=== PATIENT | female | born 1975 | race Caucasian/White ===

== ENCOUNTER → 2018-07-18 14:46 | Outpatient (CLI) | payer OTHER, SELFPAY ==
--- NOTE | 2018-07-18 14:49 | DI.RAD.S_ITS ---
PROCEDURE: XR LUMBAR SPINE MIN 4V INDICATIONS: lumbar pain TECHNIQUE: 5 views of the lumbar spine were acquired. COMPARISON: [facility], CT, CT ABD PELVIS W CON, 04/26/2016, 1:17. RG, XR L-SPINE 2-3V, 12/09/2003, 16:27. FINDINGS: Bones: 5 nonrib-bearing vertebrae are present. There is mildly dextroscoliotic bony alignment. No vertebral body compression fractures. No suspicious bony lesions. Soft tissues: Overlying bowel gas pattern is normal. No suspicious soft tissue calcifications. Oblique images: No pars defects. IMPRESSION: Mildly dextroscoliotic alignment along the lumbosacral spine centered at L2-L3, no compression fracture found. Degenerative disc disease is only mild at the L2-3 level of the lumbosacral spine and elsewhere the degenerative changes are minimal. Dictated by: Skyler Blanca M.D. on 07/18/2018 at 15:27 Approved by: Skyler Blanca M.D. on 07/18/2018 at 15:28
== END ==
PROVIDERS: Visit Provider Physical Medicine & Rehabilitation
DX: M54.5 Low back pain (principal); M51.36 Other intervertebral disc degeneration, lumbar region
CPT/HCPCS: 72110

== ENCOUNTER → 2018-09-20 13:11 | Outpatient (CLI) | payer OTHER, SELFPAY ==
--- NOTE | 2018-09-20 13:13 | DI.MRI.S_ITS ---
PROCEDURE: MR LUMBAR SPINE WO CON INDICATIONS: Low back and left hip pain. Left leg radicular symptoms TECHNIQUE: Noncontrast sagittal T1 spin echo and T2 fast echo, sagittal STIR, axial T1 and T2 fast spin echo through the lumbar spine. In cases with scoliosis, additional coronal T2 fast spin echo may be performed. COMPARISON: [facility], CR, XR LUMBAR SPINE MIN 4V, 07/18/2018, 14:54. FINDINGS: Image quality: Excellent. Alignment and Curvature: There is trace retrolisthesis of L2 on L3, L3 on L4. Bone Marrow: Marrow is of normal overall signal. Mild reactive endplate changes are present at L2-3. No acute vertebral body compression fractures. Spinal Cord: Conus medullaris terminates at the L1-L2 level. Visualized cord demonstrates normal signal and size. Paraspinous Soft Tissues: No paravertebral masses. Discs: Moderate desiccation is present at L2-3, minimal throughout the remainder of the lumbar spine. L1-L2: No disc bulge, spinal stenosis or foraminal narrowing. L2-L3: Anterior disc osteophyte complex is present. Overall, there is a mild posterior disc bulge with slight lateral extension. Minimal posterior canal narrowing secondary to epidural lipomatosis. Minimal left foraminal narrowing. L3-L4: Minimal disc both without spinal stenosis is or foraminal narrowing. Minimal facet and ligamentum flavum hypertrophy. L4-L5: Minimal disc bulge without spinal stenosis. No foraminal narrowing. Minimal to mild facet and ligamentum flavum hypertrophy. L5-S1: No disc bulge, spinal stenosis or foraminal narrowing. IMPRESSION: 1. Prominent anterior disc osteophyte complex at L2-3 with mild posterior bulge with slight lateral extension. 2. No gross spinal stenosis. 3. Minimal foraminal narrowing at L2-3. Dictated by: Barbara Carmen M.D. on 09/20/2018 at 16:13 Approved by: Barbara Carmen M.D. on 09/20/2018 at 16:18
== END ==
PROVIDERS: PCP Family Medicine; Visit Provider Physical Medicine & Rehabilitation
DX: M54.5 Low back pain (principal); M25.552 Pain in left hip; M51.16 Intervertebral disc disorders with radiculopathy, lumbar region
CPT/HCPCS: 72148

== ENCOUNTER → 2019-04-09 15:48 | Outpatient (CLI) | payer OTHER, SELFPAY ==
--- NOTE | 2019-04-09 | DI.US.S_ITS ---
PROCEDURE: US PERIPH VENOUS LOW EXTREM LT INDICATIONS: LOWER LEFT LEG PAIN, SWELLING, HISTORY OF BLOOD CLOT TECHNIQUE: Real-time imaging, as well as color and pulse Doppler interrogation, were performed of the lower extremity deep veins from the inguinal ligament to the popliteal fossa. COMPARISON: None. FINDINGS: The common femoral, femoral and popliteal veins are normally compressible, and free of intraluminal thrombus. Color and pulse Doppler demonstrate normal phasic intraluminal flow. There is normal augmentation response to distal compression maneuver. Left Achilles tendon is thickened relative to the right possibly related to chronic tendinitis. IMPRESSION: No evidence of deep vein thrombosis involving the left lower extremity. Dictated by: Edilma Bryant MD, PhD on 04/09/2019 at 16:59 Approved by: Edilma Bryant MD, PhD on 04/09/2019 at 17:00
== END ==
PROVIDERS: PCP Family Medicine; Visit Provider Internal Medicine
DX: M79.662 Pain in left lower leg (principal); R60.9 Edema, unspecified; Z86.718 Personal history of other venous thrombosis and embolism
CPT/HCPCS: 93971

== ENCOUNTER → 2019-04-12 13:06 | Outpatient (CLI) | payer OTHER, SELFPAY ==
--- NOTE | 2019-04-12 | DI.MRI.S_ITS ---
PROCEDURE: MR ANKLE LT WO CON INDICATIONS: achilles tendonitis pain TECHNIQUE: Noncontrast sagittal T1 spin echo and T2 fast spin echo with fat saturation, axial proton density fast spin echo and T2 fast spin echo with fat saturation, coronal T1 spin echo and T2 fast spin echo with fat saturation through the ankle/hindfoot. COMPARISON: None. FINDINGS: Image quality: Excellent. Bones and joints: No bone marrow contusions or fractures. No hindfoot coalitions. No osteochondral injuries of the talar dome. No pathologic joint effusions. Medial structures: The posterior tibialis, flexor digitorum longus, and flexor hallucis longus tendons are intact. Mild fluid adjacent to the posterior tibialis tendon. The posterior tibial neurovascular bundle appears normal within the tarsal tunnel, without extrinsic mass effect. The deep layer (anterior and posterior tibiotalar ligaments) and superficial layer (tibionavicular, tibiospring, and tibiocalcaneal ligaments) of the deltoid ligament appear normal. The spring ligament components (superomedial calcaneonavicular, medioplantar oblique calcaneonavicular, and inferoplantar longitudinal ligaments) are intact. Lateral structures: The anterior talofibular, calcaneofibular, and posterior talofibular ligaments appear intact. More superiorly, the anterior and posterior tibiofibular ligaments appear intact, as is the intermalleolar ligament. The tibiofibular syndesmosis is normal in width at 2 mm or less. The peroneus longus and brevis tendons demonstrate normal location and morphology. Adjacent bony peroneal tubercle and retrotrochlear prominence are normal in size. The sinus tarsi demonstrates normal fatty signal, without edema, fibrosis, or cyst formation. Visualized sinus tarsi components (cervical ligament, interosseous talocalcaneal ligament, roots of the inferior extensor retinaculum) appear normal. The calcaneonavicular and calcaneocuboid components of the bifurcate ligament appear intact. The dorsal calcaneocuboid ligament appears intact. Anterior structures: The tibialis anterior, extensor hallucis longus, and extensor digitorum longus tendons appear intact. The dorsal talonavicular ligament appears intact. Posterior and plantar structures: Achilles tendon is thickened with predominantly low signal appearance. There is mild paratenonitis. Medial and lateral bands of the plantar fascia are of normal thickness. No abductor digiti quinti muscle atrophy to suggest Almendarez neuropathy. IMPRESSION: Mild distal Achilles tendinopathy. Low-grade posterior tibialis tenosynovitis. Dictated by: Jeff Porras M.D. on 04/12/2019 at 15:08 Approved by: Jeff Porras M.D. on 04/12/2019 at 15:11
== END ==
PROVIDERS: Family Provider Family Medicine; PCP Family Medicine; Visit Provider Nurse Practitioner Family
DX: M76.62 Achilles tendinitis, left leg (principal); M65.862 Other synovitis and tenosynovitis, left lower leg
CPT/HCPCS: 73721

== ENCOUNTER → 2020-05-21 14:08 | Outpatient (CLI) | payer OTHER, SELFPAY ==
--- NOTE | 2020-05-21 | DI.RAD.S_ITS ---
PROCEDURE: XR ELBOW RT 2V INDICATIONS: RIGHT ARM PAIN S/P FALL TECHNIQUE: 3 views of the elbow were acquired. COMPARISON: None. FINDINGS: Bones: Intra-articular radial head fracture with minimal articular surface incongruity. There is approximately 1 mm of diastasis and step-off. Elbow joint effusion is present. IMPRESSION: Intra-articular radial head fracture. Associated joint effusion Dictated by: Jeff Porras M.D. on 05/21/2020 at 15:28 Approved by: Jeff Porras M.D. on 05/21/2020 at 15:29
--- NOTE | 2020-05-21 | DI.RAD.S_ITS ---
PROCEDURE: XR HUMERUS RT 2V INDICATIONS: RIGHT ARM PAIN S/P FALL TECHNIQUE: 2 views of the humerus were acquired. COMPARISON: [facility], CR, XR ELBOW RT 2V, 05/21/2020, 13:20. FINDINGS: Bones: Radial head fracture is noted. Humerus appears intact. Soft tissues: No suspicious soft tissue calcifications. IMPRESSION: Radial head fracture Dictated by: Jeff Porras M.D. on 05/21/2020 at 15:25 Approved by: Jeff Porras M.D. on 05/21/2020 at 15:26
--- NOTE | 2020-05-21 | DI.RAD.S_ITS ---
PROCEDURE: XR FOREARM RT 2V INDICATIONS: RIGHT ARM PAIN S/P FALL TECHNIQUE: 2 views of the forearm were acquired. COMPARISON: [facility], CR, XR ELBOW RT 2V, 05/21/2020, 13:20. FINDINGS: Bones: Radial head fracture better seen on the comparison studies. Soft tissues: No suspicious soft tissue calcifications or masses. IMPRESSION: Radial head fracture Dictated by: Jeff Porras M.D. on 05/21/2020 at 15:26 Approved by: Jeff Porras M.D. on 05/21/2020 at 15:28
== END ==
PROVIDERS: Family Provider Family Medicine; PCP Family Medicine; Referring Provider Family Medicine; Visit Provider Family Medicine
DX: M79.601 Pain in right arm (principal); S52.121A Displaced fracture of head of right radius, initial encounter for closed fracture; W19.XXXA Unspecified fall, initial encounter
CPT/HCPCS: 73060; 73070; 73090

== ENCOUNTER → 2023-03-17 10:12 | Outpatient (CLI) | payer OTHER, SELFPAY ==
[2023-03-17 11:12] LABS: Add Manual Diff / Slide Review NO; Basophils Absolute Auto 100 /uL (0-100); Eosinophils Absolute Auto 200 /uL (0-450); Eosinophils Percent Auto 2.8 % (2-4); Hematocrit 39.3 % (36-46); Hemoglobin 13.4 g/dL (12.0-16.0); Lymphocytes Absolute Auto 2300 /uL (1100-4500); Mean Corpuscular HGB Conc 34.2 % (30-36); Mean Corpuscular Hemoglobin 31.8 PG (26-34); Monocytes Absolute Auto 500 /uL (0-900); Monocytes Percent Auto 5.7 % (3-14); Neutrophils Absolute Auto 5100 /uL (1500-7000); Neutrophils Percent Auto 62.5 % (50-75); Platelet Count 296 X10^3/uL (150-400); Red Blood Cell Count 4.23 X10^6/uL (4.0-5.2); Red Cell Distribution Width 12.8 % (11.6-14.8); White Blood Cell Count 8.1 X10^3/uL (4.5-11.0)
[2023-03-17 11:31] LABS: Alanine Aminotransferase 12 IU/L (<35); Albumin 4.4 g/dL (3.5-5.0); Albumin Globulin Ratio 1.6 (1.0-2.8); Alkaline Phosphatase 46 U/L (38-126); Aspartate Aminotransferase 22 IU/L (14-36); Bilirubin Total 0.5 mg/dL (0.2-1.3); Blood Urea Nitrogen 12 mg/dL (7-17); Calcium 9.3 mg/dL (8.4-10.2); Carbon Dioxide 26 mmol/L (22-32); Chloride 101 mmol/L (98-107); Estimated Glomerular Filt Rate > 60 mL/min (>60); Globulin 2.8 g/dL (1.7-4.1); Glucose 112 mg/dL (70-100); HEMOLYSIS < 15 (0-50); Potassium 4.2 mmol/L (3.4-5.1); Sodium 136 mmol/L (137-145); Total Protein 7.2 g/dL (6.3-8.2)
[2023-03-17 11:32] LABS: HEMOLYSIS < 15 (0-50); Iron 130 ug/dL (37-170)
[2023-03-17 11:35] LABS: High Sensitivity CRP - Cardiac 2.3 mg/L (1.0-3.0)
[2023-03-17 11:43] LABS: Percent Iron Saturation 34 % (15-50); Total Iron Binding Capacity 388 ug/dL (265-497); Transferrin 291 mg/dL (206-381)
[2023-03-17 11:49] LABS: Follicle Stimulating Hormone 11.1 mIU/mL; Free T3, Triiodothyronine Free 3.34 pg/mL (2.77-5.27); Progesterone, Total 1.28 ng/mL; T4 Total Thyroxine 9.71 ug/dL (5.5-11.0); T7 (Free Thyroxine Index) 2.64 (1.65-3.89); Triiodothryronine T3 Uptake 27.2 % (23.5-40.5)
[2023-03-17 12:02] LABS: Thyroid Stimulating Hormone 1.55 uIU/mL (0.47-4.68)
[2023-03-17 12:04] LABS: Estradiol, Total 155.2 pg/mL
[2023-03-17 12:05] LABS: Ferritin 29 ng/mL (6-137)
[2023-03-18 08:39] LABS: Dehydroepiandrosterone Sulfate 85.9 ug/dL (41.2-243.7); Homocysteine 7.5 umol/L (0.0-14.5); Labcorp Hemoglobin (Hb) A1c 5.3 % (4.8-5.6)
== END ==
PROVIDERS: Family Provider Family Medicine; PCP Family Medicine; Referring Provider Naturopath; Visit Provider Naturopath
DX: D25.0 Submucous leiomyoma of uterus (principal); E05.00 Thyrotoxicosis with diffuse goiter without thyrotoxic crisis or storm; E27.40 Unspecified adrenocortical insufficiency; R68.82 Decreased libido; E66.3 Overweight; Z56.6 Other physical and mental strain related to work
CPT/HCPCS: 36415; 80053; 82627; 82670; 82728; 83001; 83036; 83090; 83540; 83550; 84144; 84436; 84443; 84479; 84481; 84482; 85025; 86140

== ENCOUNTER → 2023-08-22 07:46 | Outpatient (CLI) | payer OTHER, SELFPAY ==
--- NOTE | 2023-08-22 | DI.US.S_ITS ---
PROCEDURE: US PERIP VENOUS LOW EXTREM LT INDICATIONS: Left calf pain TECHNIQUE: Real-time imaging, as well as color and pulse Doppler interrogation, were performed of the lower extremity deep veins from the inguinal ligament to the popliteal fossa, with documentation of the visualized calf veins. COMPARISON: [facility], , [facility] VENOUS LOW EXTREM LT, 04/09/2019, 16:11. FINDINGS: The common femoral, femoral, popliteal, and the visualized calf veins are normally compressible, and free of intraluminal thrombus. Color and pulse Doppler demonstrate normal phasic intraluminal flow. There is normal augmentation response to distal compression maneuver. IMPRESSION: No deep venous thrombosis in the left lower extremity. Dictated by: Milan Mcmahon M.D. on 08/22/2023 at 10:48 Approved by: Milan Mcmahon M.D. on 08/22/2023 at 10:49
--- NOTE | 2023-08-22 | DI.US.S_ITS ---
PROCEDURE: US THYROID INDICATIONS: Nontoxic multinodular goiter TECHNIQUE: Real-time scanning was performed of the thyroid gland, with image documentation. COMPARISON: [facility], US, THYROID, 09/13/2017, 15:05. FINDINGS: Right: Thyroid lobe measures 4.6 x 1.4 x 0.9 cm, and is heterogeneous in echotexture. Left: Thyroid lobe measures 5.4 x 1.4 x 1.1 cm, and is heterogeneous in echotexture. Isthmus: 2 mm thick. Nodule number: 1 Not visualized on the current exam visualized Nodule number: 2 Location: Right inferior Size: 1.4 x 0.7 x 0.4 cm; previously 1.2 x 0.7 x 0.6 cm. Composition: Solid Echogenicity: Hypoechoic Shape: wider than tall. Margins: Smooth Echogenic foci: Non Total points: 4 ACR TI-RADS category: 4 Nodule number: 3 Location: Right mid Size: 0.4 x 0.3 x 0.1 cm; previously 1.2 x 0.7 x 0.6 cm. Composition: Solid Echogenicity: Isoechoic Shape: wider than tall. Margins: Irregular Echogenic foci: None Total points: 5 ACR TI-RADS category: 4 Nodule number: 4 Location: Left mid anterior Size: 0.7 x 0.7 x 0.4 cm; new. Composition: Solid Echogenicity: Hypoechoic Shape: wider than tall. Margins: Smooth Echogenic foci: None Total points: 4 ACR TI-RADS category: 4 There is a 0.8 x 0.8 x 0.3 cm hypoechoic nodule posterior to the inferior pole of the right thyroid lobe, suspicious for a parathyroid adenoma. IMPRESSION: 1. Multiple thyroid nodules are present. Nodule 1 described on the last exam is no longer visualized. There is a new nodule in the left mid anterior thyroid lobe. Recommend continue ultrasound follow-up. 2. Question a small parathyroid adenoma posterior to the inferior pole of the right thyroid lobe. ACR TI-RADS definitions and recommendations: TI-RADS 1 (benign): 0 points. FNA not needed. TI-RADS 2 (not suspicious): 2 points. FNA not needed. TI-RADS 3 (mildly suspicious): 3 points. * FNA if 2.5 cm or larger, follow up if 1.5 cm or larger (at 1, 3, and 5 years). TI-RADS 4 (moderately suspicious): 4-6 points. * FNA if 1.5 cm or larger, follow up if 1 cm or larger (at 1, 2, 3, and 5 years). TI-RADS 5 (highly suspicious): 7 points or more. * FNA if 1 cm or larger, follow up if 0.5 cm or larger (every year for 5 years). Dictated by: Keeley Galaviz M.D. on 08/22/2023 at 13:54 Approved by: Keeley Galaviz M.D. on 08/22/2023 at 14:01
== END ==
PROVIDERS: Family Provider Family Medicine; PCP Family Medicine; Referring Provider Family Medicine; Visit Provider Family Medicine
DX: E04.2 Nontoxic multinodular goiter (principal); M79.662 Pain in left lower leg
CPT/HCPCS: 76536; 93971

== ENCOUNTER → 2023-08-30 14:15 | Outpatient (CLI) | payer OTHER, SELFPAY ==
--- NOTE | 2023-08-30 | DI.MG.S_ITS ---
BILATERAL DIGITAL SCREENING MAMMOGRAM 3D/2D WITH CAD: 08/30/2023 CLINICAL: Routine screening. Family history of breast cancer. Comparison is made to exams dated: 08/29/2022 mammogram, 08/04/2021 mammogram, 07/23/2021 mammogram - [facility]. Both breasts are heterogeneously dense, which may obscure small masses (category c / 51-75% glandular tissue). Current study was also evaluated with a Computer Aided Detection (CAD) system. No significant masses, calcifications, or other findings are seen in either breast. There has been no significant interval change. IMPRESSION: NEGATIVE There is no mammographic evidence of malignancy. A 1 year screening mammogram is recommended. Based on the Tyrer Cuzick model (a risk assessment model) the patient's lifetime risk is 19.4% and her 10 year risk is 4.5%. According to the ACR, ACS, and NCCN guidelines, an annual breast MRI exam along with mammogram is recommended if the patient's lifetime risk is 20% or greater. This exam was interpreted at Station ID: [id number]. NOTE: For mammograms, a report in lay terms will be sent to the patient. Approximately 15% of breast malignancies will not be visualized mammographically. In the management of a palpable breast mass, a negative mammogram must not discourage biopsy of a clinically suspicious lesion. Electronically Signed By: Ruddy Akins M.D. [facility] [place]/:08/30/2023 17:40:26 letter sent: Normal Exam ACR BI-RADS Category 1: Negative [id number]
== END ==
PROVIDERS: Family Provider Family Medicine; PCP Family Medicine; Referring Provider Family Medicine; Visit Provider Family Medicine
DX: Z12.31 Encounter for screening mammogram for malignant neoplasm of breast (principal); Z80.3 Family history of malignant neoplasm of breast
CPT/HCPCS: 77063; 77067

== ENCOUNTER → 2023-12-05 12:43 | Outpatient (CLI) | payer OTHER, SELFPAY ==
--- NOTE | 2023-12-05 12:44 | DI.RAD.S_ITS ---
PROCEDURE: FL BARIUM SWALLOW INDICATIONS: Oropharangeal dysphagia COMPARISON: None. FINDINGS: Function: Tertiary esophageal contractions are seen. No elicited gastroesophageal reflux. There is delayed transit of a calibrated barium tablet through the esophagus into the stomach. Morphology: Air-contrast images demonstrate unremarkable mucosal morphology. Single contrast views show no esophageal strictures, extrinsic mass effects, or diverticula. Limited images of the stomach demonstrate unremarkable appearance. The hiatal hernia indicated by the patient is not appreciated . Fluoroscopic time: 2.3 minutes. 18 images saved. Single exposure was taken. IMPRESSION: 1. Abnormal tertiary esophageal contractions 2. Delayed passage of barium tablet into the stomach Dictated by: Catrachito Giarrd M.D. on 12/06/2023 at 9:58 Approved by: Catrachito Girard M.D. on 12/06/2023 at 10:01
== END ==
LOC: RAD 12:44
PROVIDERS: Family Provider Family Medicine; PCP Family Medicine; Referring Provider Family Medicine; Visit Provider Family Medicine
DX: R13.12 Dysphagia, oropharyngeal phase (principal)
CPT/HCPCS: 74220

== ENCOUNTER → 2024-10-15 12:38 | Outpatient (CLI) | payer OTHER, SELFPAY ==
--- NOTE | 2024-10-15 12:40 | DI.US.S_ITS ---
PROCEDURE: US THYROID INDICATIONS: HYPOTHYROIDISM TECHNIQUE: Real-time scanning was performed of the thyroid gland, with image documentation. COMPARISON: [facility], US, US THYROID, 08/22/2023, 8:04. FINDINGS: Thyroid: Right lobe measures 5.6 x 1.4 x 1.1 cm. Left lobe measures 5.4 x 1.6 x 0.8 cm. Isthmus is 2 cm thick. Echotexture is heterogeneous. A few subcentimeter hypoechoic nodules are present; these do not require follow-up per consensus guidelines. IMPRESSION: The previously described nodule 2. Is no longer visualized. Remaining nodules are smaller than 1 cm, without suspicious features to warrant additional follow-up, per consensus guidelines. ACR TI-RADS definitions and recommendations: TI-RADS 1 (benign): 0 points. FNA not needed. TI-RADS 2 (not suspicious): 2 points. FNA not needed. TI-RADS 3: 3 points. * FNA if 2.5 cm or larger, follow up if 1.5 cm or larger (at 1, 3, and 5 years). TI-RADS 4: 4-6 points. * FNA if 1.5 cm or larger, follow up if 1 cm or larger (at 1, 2, 3, and 5 years). TI-RADS 5: 7 points or more. * FNA if 1 cm or larger, follow up if 0.5 cm or larger (every year for 5 years). Dictated by: Eduard Mulligan M.D. on 10/15/2024 at 15:32 Approved by: Eduard Mulligan M.D. on 10/15/2024 at 15:34
== END ==
PROVIDERS: Family Provider Family Medicine; PCP Family Medicine; Referring Provider Family Medicine; Visit Provider Family Medicine
DX: E03.4 Atrophy of thyroid (acquired) (principal); E04.2 Nontoxic multinodular goiter
CPT/HCPCS: 76536

== ENCOUNTER → 2024-10-24 14:17 | Outpatient (CLI) | payer OTHER, SELFPAY ==
--- NOTE | 2024-10-24 14:18 | DI.MG.S_ITS ---
BILATERAL DIGITAL DIAGNOSTIC MAMMOGRAM 3D/2D: 10/24/2024 CLINICAL: Right breast lump. Comparison is made to exams dated: 08/30/2023 mammogram - [facility], 08/29/2022 mammogram, and 07/23/2021 mammogram - [facility]. The breasts are heterogeneously dense, which may obscure small masses (category c / 51-75% glandular tissue). No significant masses, calcifications, or other findings are seen in either breast. IMPRESSION: INCOMPLETE: NEED ADDITIONAL IMAGING EVALUATION There is no abnormality seen in the right breast to correspond with the area of clinical concern and palpable abnormality indicated by triangular marker in the middle depth in the upper outer quadrant, however, ultrasound is recommended for further evaluation and is scheduled to immediately follow this examination. Based on the Tyrer Cuzick model (a risk assessment model) the patient's lifetime risk is 19.7% and her 10 year risk is 4.8%. According to the ACR, ACS, and NCCN guidelines, an annual breast MRI exam along with mammogram is recommended if the patient's lifetime risk is 20% or greater. This exam was interpreted at Station ID: [id number]. NOTE: For mammograms, a report in lay terms will be sent to the patient. Approximately 15% of breast malignancies will not be visualized mammographically. In the management of a palpable breast mass, a negative mammogram must not discourage biopsy of a clinically suspicious lesion. Electronically Signed By: Charli Jorge M.D. aty/:10/24/2024 15:03:17 letter sent: Additional Imaging Needed ACR BI-RADS Category 0: Incomplete: Need Additional Imaging Evaluation
--- NOTE | 2024-10-24 14:19 | DI.US.S_ITS ---
LIMITED ULTRASOUND OF RIGHT BREAST: 10/24/2024 CLINICAL: Patient returns today to evaluate a focal asymmetry in the right breast. Patient returns today to evaluate a focal asymmetry in the right breast. Comparison is made to exams dated: 10/24/2024 mammogram, 08/30/2023 mammogram - [facility], 08/29/2022 mammogram, 08/04/2021 mammogram, 07/23/2021 mammogram - [facility], and 01/15/2015 mammogram - [facility]. Real-time ultrasound of the right breast 11 o'clock region was performed. Martinez scale images of the real-time examination were reviewed. No significant abnormalities were seen sonographically in the right breast. IMPRESSION: NEGATIVE There is no sonographic evidence of malignancy. There is no abnormality seen in the right breast to correspond with the area of clinical concern and palpable abnormality at 11 o'clock, however, recommend clinical follow up for persistent or worsening symptoms, or development of any clinically suspicious findings. A 1 year screening mammogram is recommended. Findings and recommendations were conveyed to the patient during today's evaluation. This exam was interpreted at Station ID: [id number]. Electronically Signed By: Charli Jorge M.D. aty/:10/24/2024 15:18:40 letter sent: Clinical Evaluation ACR BI-RADS Category 1: Negative
== END ==
PROVIDERS: Family Provider Family Medicine; PCP Family Medicine; Referring Provider Family Medicine; Visit Provider Family Medicine
DX: R92.2 Inconclusive mammogram (principal); N63.15 Unspecified lump in the right breast, overlapping quadrants; R92.333 Mammographic heterogeneous density, bilateral breasts
CPT/HCPCS: 76642; 77066; G0279

== ENCOUNTER → 2025-01-09 14:16 | Outpatient (CLI) | payer OTHER, SELFPAY ==
--- NOTE | 2025-01-09 14:18 | DI.RAD.S_ITS ---
PROCEDURE: XR HAND LT MIN 3V INDICATIONS: Pain in left hand TECHNIQUE: 3 views of the hand(s) acquired. COMPARISON: None. FINDINGS: Bones: No fractures or dislocations. Carpal bones are normally aligned. No suspicious bony lesions. Interphalangeal joint space narrowing with osteophytosis. No significant degenerative change of the 1st CMC joint. Soft tissues: No suspicious soft tissue calcifications. IMPRESSION: No acute bony abnormality. Mild interphalangeal osteoarthritis. Dictated by: Eduard Mulligan M.D. on 01/10/2025 at 10:20 Approved by: Eduard Mulligan M.D. on 01/10/2025 at 10:23
== END ==
PROVIDERS: Family Provider Family Medicine; PCP Family Medicine; Referring Provider Family Medicine; Visit Provider Family Medicine
DX: M19.042 Primary osteoarthritis, left hand (principal); M79.642 Pain in left hand
CPT/HCPCS: 73130